=== PATIENT | male | born 1955 | race Caucasian/White ===

== ENCOUNTER 2018-07-12 06:17 | Emergency (ER) | payer OTHER ==
[~2018-07-12] VITALS: Ht 167.6 cm; Wt 89.6 kg
[~2018-07-12 06:17] MED LIST: COL100 PO; GLU500 PO; LEXAPRO10 MG PO; NORCO1 TA2 PO; SIMVASTATIN20 M1 PO; ZES10 PO
[2018-07-12 06:19] VITALS: Ht 167.6 cm; Wt 89.6 kg
[2018-07-12 07:26] LABS: BASOPHIL % 0.4 % (0-2); PLATELET COUNT 190 x10^3mcL (130-400); RED CELL DISTRIBUTION WIDTH 14.4 % (11.5-14.5)
[2018-07-12 07:34] LABS: CALCIUM 8.9 mg/dL (8.5-10.1); CARBON DIOXIDE 29.1 mmol/L (21-32); CHLORIDE SERUM 104 mmol/L (98-107); CREATININE SERUM 1.1 mg/dL (0.7-1.3); GFR1 > 60 mL/min; GLUCOSE SERUM 121 mg/dL (74-106); POTASSIUM SERUM 4.1 mmol/L (3.5-5.1); SODIUM SERUM 139 mmol/L (136-145)
[2018-07-12 07:39] LABS: ALKALINE PHOSPHATASE 64 U/L (46-116); ALT/SGPT 34 U/L (16-63); AST/SGOT 16 U/L (15-37); BILIRUBIN TOTAL 1.11 mg/dL (0.20-1.00); LIPASE 115 IU/L (73-393); TOTAL PROTEIN, SERUM 7.2 g/dL (6.4-8.2); TRIGLYCERIDES 123 mg/dL (<150)
[2018-07-12 07:41] LABS: CHOLESTEROL 229 mg/dL (<200); CHOLESTEROL/HDL RATIO 3.6; HDL CHOLESTEROL 64 mg/dL (40-60)
[2018-07-12 07:48] LABS: microscopic required? NO
[2018-07-12 07:54] LABS: T3 TOTAL 1.05 ng/mL
[2018-07-12 08:34] LABS: FREE T4 0.86 ng/dL (0.76-1.46); FREE THYROXINE INDEX 2.4 ug/dL (1.4-4.5); T4(THYROXINE) 7.2 ug/dL (4.7-13.3)
[2018-07-12 08:38] LABS: UA SPECIFIC GRAVITY 1.025 (1.005-1.035); urine erythrocyte NEGATIVE (NEGATIVE)
[2018-07-12 10:58] VITALS: BP 115/65
== END 2018-07-12 10:58 | disposition home or self-care (01) ==
LOC: ED 06:17
PROVIDERS: Specialist
DX: R42 Dizziness and giddiness (principal); I10 Essential (primary) hypertension; R11.2 Nausea with vomiting, unspecified; H57.89 Other specified disorders of eye and adnexa; E11.9 Type 2 diabetes mellitus without complications; E78.00 Pure hypercholesterolemia, unspecified; Z90.49 Acquired absence of other specified parts of digestive tract
CPT/HCPCS: 82962; 83880; 84439; J7030; Q0092